=== PATIENT | female | born 1975 | race Caucasian/White ===

== ENCOUNTER 2017-06-04 19:33 | Emergency (ER) | payer BC ==
[~2017-06-04] VITALS: Ht 165.1 cm; Wt 134.7 kg
[2017-06-04] MEDS ORDERED: FELBAMATE600 MG PO (20:47)
[2017-06-04 21:22] VITALS: BP 149/89
== END 2017-06-04 21:22 | disposition home or self-care (01) ==
LOC: EME 19:33
DX: G40.909 Epilepsy, unspecified, not intractable, without status epilepticus (principal); Z76.0 Encounter for issue of repeat prescription
CPT/HCPCS: 99281; 99283

== ENCOUNTER 2017-10-24 21:06 | Emergency (ER) | payer BC ==
[~2017-10-24] VITALS: Ht 162.6 cm; Wt 136.3 kg
[~2017-10-24 21:06] MED LIST: FELBAMATE600 MG PO
[2017-10-24 22:06] LABS: HEMATOCRIT 37.2 % (36.0-46.0); HEMOGLOBIN 11.9 G/DL (11.9-15.5); MCV 84.5 FL (83-99); PLATELET COUNT 218 K/uL (156-360); RBC DIS.WIDTH-CV 15.9 % (11.8-14.6); RBC DIS.WIDTH-SD 49.4 % (39-53); WHITE BLOOD COUNT 12.1 K/uL (4.1-10.2)
[2017-10-24 22:21] LABS: ALBUMIN 3.9 g/dL (3.2-4.8); CHLORIDE 110 mEq/L (99-109); POTASSIUM 3.8 mEq/L (3.7-5.4); SODIUM 141 mEq/L (136-147)
[2017-10-24 22:23] LABS: GLUCOSE 94 mg/dL (70-99); TOTAL PROTEIN 7.4 g/dL (6.4-8.3)
[2017-10-24 22:25] LABS: TOTAL BILIRUBIN 0.3 mg/dL (0.0-1.0)
[2017-10-24 22:27] LABS: ALKALINE PHOSPHATASE 106 IU/L (3-129); CREATININE 0.7 mg/dL (0.6-1.3); GFR ESTIMATE (CALCULATED) > 59 mL/min/
[2017-10-24 22:28] LABS: UREA NITROGEN (BUN) 15 mg/dL (9-23)
[2017-10-24 22:29] LABS: AST (GOT) 21 IU/L (2-34)
[2017-10-24 22:30] LABS: ALT (GPT) 25 IU/L (3-49); LIPASE 19 U/L (1.0-51.0)
[2017-10-24 22:39] LABS: QUANTITATIVE HCG < 4.0 MIU/ML
[2017-10-24] MEDS ORDERED: ZONEGRAN100 MG PO (23:55)
[2017-10-25 00:14] LABS: APPEARANCE SL.HAZY ((CLEAR)); BILIRUBIN NEGATIVE; BLOOD LARGE; COLOR YELLOW ((YELLOW)); GLUCOSE (STRIP) NEGATIVE; KETONES NEGATIVE; LEUKOCYTES TRACE; NITRITE NEGATIVE; PROTEIN (STRIP) 30; SPECIFIC GRAVITY 1.021 (1.000-1.030); UROBILINOGEN 0.2 MG/DL (0.2-1.0)
[2017-10-25 00:23] LABS: BACTERIA NONE SEEN /HPF; CALCIUM OXALATE CRYSTALS 1+ /HPF; EPITHELIAL CELLS RARE /HPF; MUCUS 1+ /LPF; RED BLOOD CELLS TNTC /HPF (0-5); UCUL ADDED? YES
[2017-10-25] MEDS ORDERED: ZOFRAN ODT4 MG PO (02:50)
[2017-10-25] MEDS ORDERED: PERCOCET 5/31 TABLET PO (02:50)
[2017-10-25] MEDS ORDERED: CIPRO500 MG PO (02:51)
[2017-10-25 03:22] VITALS: BP 144/77
== END 2017-10-25 03:25 | disposition home or self-care (01) ==
LOC: EME 21:06
DX: N20.1 Calculus of ureter (principal)
CPT/HCPCS: 74176; 80053; 81003; 83690; 84702; 85027; 87086; 99281; 99284; J1885; J3010

== ENCOUNTER 2017-10-28 11:31 | Day surgery (SDC) | payer BC ==
[~2017-10-28] VITALS: Ht 162.6 cm; Wt 134.0 kg
[~2017-10-28 11:31] MED LIST changes: +CIPRO500 MG PO; +PERCOCET 5/31 TABLET PO; +ZOFRAN ODT4 MG PO; +ZONEGRAN100 MG PO
[2017-10-28 12:13] VITALS: BP 145/79
[2017-10-28 16:10] VITALS: BP 168/80
[2017-10-28 17:01] VITALS: BP 170/68
[2017-10-29] MEDS ORDERED: ZOFRAN ODT4 MG PO (08:09)
[2017-10-29] MEDS ORDERED: FELBATOL600 MG PO (08:09)
[2017-10-29] MEDS ORDERED: FLONASE16 G1 BOTH NARES (08:10)
[2017-10-29] MEDS ORDERED: NORCO 5/3251 TABLET PO (08:45)
[2017-10-29] MEDS ORDERED: MACROBID100 MG PO (08:45)
== END 2017-10-28 18:10 | disposition home or self-care (01) ==
LOC: SDC 11:31
PROVIDERS: Urology
DX: N13.2 Hydronephrosis with renal and ureteral calculous obstruction (principal); G40.209 Localization-related (focal) (partial) symptomatic epilepsy and epileptic syndromes with complex partial seizures, not intractable, without status epilepticus; J45.909 Unspecified asthma, uncomplicated; E66.9 Obesity, unspecified; Z68.43 Body mass index [BMI] 50.0-59.9, adult
CPT/HCPCS: 74420; 82365 90; C1758; C2625; J0690; J1100; J1170; J2250; J2405; J3010

== ENCOUNTER 2017-10-29 01:05 | Emergency (ER) | payer BC ==
[~2017-10-29] VITALS: Ht 162.6 cm; Wt 135.2 kg
[2017-10-29 01:43] LABS: HEMATOCRIT 36.6 % (36.0-46.0); HEMOGLOBIN 11.7 G/DL (11.9-15.5); MCH 27.1 PG (29.0-34.0); MCV 84.7 FL (83-99); PLATELET COUNT 248 K/uL (156-360); RBC DIS.WIDTH-CV 15.9 % (11.8-14.6); RBC DIS.WIDTH-SD 49.4 % (39-53); RED BLOOD COUNT 4.32 M/uL (3.80-5.20); WHITE BLOOD COUNT 10.6 K/uL (4.1-10.2)
[2017-10-29 01:51] LABS: CHLORIDE 111 mEq/L (99-109); POTASSIUM 4.2 mEq/L (3.7-5.4); SODIUM 140 mEq/L (136-147)
[2017-10-29 01:53] LABS: GLUCOSE 115 mg/dL (70-99)
[2017-10-29 01:57] LABS: CREATININE 0.8 mg/dL (0.6-1.3); GFR ESTIMATE (CALCULATED) > 59 mL/min/; UREA NITROGEN (BUN) 10 mg/dL (9-23)
[2017-10-29 02:17] LABS: APPEARANCE BLOODY ((CLEAR)); COLOR RED ((YELLOW)); LEUKOCYTES MODERATE
[2017-10-29 02:18] LABS: BILIRUBIN MODERATE; BLOOD LARGE; GLUCOSE (STRIP) NEGATIVE; ICTOTEST ND; KETONES NEGATIVE; NITRITE POSITIVE; PH, URINE 6.5 (5-8); PROTEIN (STRIP) 300; UROBILINOGEN 0.2 MG/DL (0.2-1.0)
[2017-10-29 02:19] LABS: BACTERIA 3+ /HPF; EPITHELIAL CELLS NONE SEEN /HPF; MUCUS NONE SEEN /LPF; RED BLOOD CELLS TNTC /HPF (0-5); UCUL ADDED? YES
[2017-10-29] MEDS ORDERED: FELBATOL600 MG PO (08:09)
[2017-10-29] MEDS ORDERED: ZOFRAN ODT4 MG PO (08:09)
[2017-10-29] MEDS ORDERED: FLONASE16 G1 BOTH NARES (08:10)
[2017-10-29] MEDS ORDERED: MACROBID100 MG PO (08:45)
[2017-10-29] MEDS ORDERED: NORCO 5/3251 TABLET PO (08:45)
[2017-10-29 09:43] VITALS: BP 159/90
== END 2017-10-29 09:59 | disposition home or self-care (01) ==
LOC: EME 01:05
DX: N30.01 Acute cystitis with hematuria (principal); N20.1 Calculus of ureter; Z96.0 Presence of urogenital implants; J02.9 Acute pharyngitis, unspecified; G89.18 Other acute postprocedural pain; N83.202 Unspecified ovarian cyst, left side; D64.9 Anemia, unspecified; R56.9 Unspecified convulsions; Z87.442 Personal history of urinary calculi; Z91.040 Latex allergy status; Z91.09 Other allergy status, other than to drugs and biological substances
CPT/HCPCS: 74176; 80048; 81003; 85027; 87086; 87651 90; 99281; 99285; J0696; J1885; J3010; J7030